=== PATIENT | female | born 1990 | race Caucasian/White ===

== ENCOUNTER 2018-01-10 20:45 | Emergency (ER) | payer OTHER ==
[~2018-01-10] VITALS: Ht 162.6 cm; Wt 101.2 kg
[~2018-01-10 20:45] MED LIST: FLEXERIL10 MG PO; Motrin PO
[2018-01-10] MEDS ORDERED: NAPROSYN500 MG PO (22:32)
[2018-01-10] MEDS ORDERED: FLEXERIL10 MG PO (22:32)
[2018-01-10 22:47] VITALS: BP 122/89
== END 2018-01-10 22:50 | disposition home or self-care (01) ==
LOC: EME 20:45
DX: S09.90XA Unspecified injury of head, initial encounter (principal); S16.1XXA Strain of muscle, fascia and tendon at neck level, initial encounter; S46.912A Strain of unspecified muscle, fascia and tendon at shoulder and upper arm level, left arm, initial encounter; V47.6XXA Car passenger injured in collision with fixed or stationary object in traffic accident, initial encounter; Y92.410 Unspecified street and highway as the place of occurrence of the external cause; J45.909 Unspecified asthma, uncomplicated; F17.200 Nicotine dependence, unspecified, uncomplicated
CPT/HCPCS: 70450; 72125; 73030; 99281; 99284